=== PATIENT | female | born 1960 | race Caucasian/White ===

== ENCOUNTER 2017-04-02 18:47 | Emergency (ER) | payer OTHER ==
[~2017-04-02] VITALS: Ht 157.5 cm; Wt 46.5 kg
[~2017-04-02 18:47] MED LIST: ALEN70TA39 PO; AMPH1TAB83 PO; BECL80AE3 INH; BENZ100 PO; CLON1 PO; DICY20TA10 PO; FENO145T2 PO; LEVO.15 PO; MAXA10TA2 PO; NABU500T PO; OMEP20CA5 PO; OXYC1SOL5 PO; SUCR1TAB PO; VALA500T PO; VENL150T14 OR; VENTAER INH; ZOCO40TA PO
[2017-04-02 18:49] VITALS: BP 119/78; PULSE 65; RESP 18; TEMP 98.5; O2SAT 98
[2017-04-02] MEDS ORDERED: BETH10TA2 PO (19:13)
[2017-04-02] MEDS ORDERED: VENTAER INH (19:13)
[2017-04-02] MEDS ORDERED: DULO1CAP3 PO (19:13)
[2017-04-02] MEDS ORDERED: ALEN1TAB48 PO (19:13)
[2017-04-02] MEDS ORDERED: PERC10TA27 PO (19:13)
[2017-04-02] MEDS ORDERED: LEVO.075 PO (19:13)
[2017-04-02] MEDS ORDERED: COLE625 PO (19:13)
[2017-04-02] MEDS ORDERED: VITA100021 SL (19:13)
[2017-04-02] MEDS ORDERED: MECL-62 PO (19:13)
[2017-04-02] MEDS ORDERED: ADDE20XR PO (19:13)
[2017-04-02] MEDS ORDERED: CLON1TAB PO (19:13)
[2017-04-02] MEDS ORDERED: METH1TAB2 PO (19:13)
[2017-04-02] MEDS ORDERED: FENO145T2 PO (19:13)
[2017-04-02] MEDS ORDERED: IPRASOL INH (19:13)
[2017-04-02] MEDS ORDERED: LINA145C PO (19:13)
[2017-04-02] MEDS ORDERED: METH750T PO (19:13)
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
[2017-04-02] MEDS ORDERED: predniSONE 20 MG TAB PO ONE (19:45)
[2017-04-02] MEDS ORDERED: SODIUM CHLORIDE 0.9% FLUSH 10 ML FLUSH IVF PRN (19:45)
[2017-04-02] MEDS: RESP: ALBUTEROL 2.5 MG/IPRATROPIUM 0.5 MG NEB (SCH) INH (19:59)
--- NOTE | 2017-04-02 20:17 | RADRPT ---
EXAM DATE/TIME: 04/02/2017 19:48 [place] COMPARISON: No previous studies available for comparison. INDICATIONS : Cough. MEDICAL HISTORY : Carcinoma, breast. Hepatitis C. Asthma. SURGICAL HISTORY : Mastectomy, left. Breast reconstruction. ENCOUNTER: Initial ACUITY: 2 weeks PAIN SCORE: 0/10 LOCATION: Bilateral chest FINDINGS: Portable AP view of the chest demonstrates a normal-sized cardiac silhouette. No effusion, consolidat ion, or pneumothorax is visualized. The bones and soft tissues demonstrate no acute abnormality. Surg ical clips overlie the left axilla. CONCLUSION: No acute cardiopulmonary abnormality is identified. Gilbert Churchill MD on April 02, 2017 at 20:15 Board Certified Radiologist. This report was verified electronically.
[2017-04-02] MEDS ORDERED: PRED20 PO (20:21)
[2017-04-02] MEDS ORDERED: ZITHTAB PO (20:27)
[2017-04-02 20:37] VITALS: BP 148/81
== END 2017-04-02 20:57 | disposition home or self-care (01) ==
LOC: PHED 18:47
DX: J44.1 Chronic obstructive pulmonary disease with (acute) exacerbation (principal); Z87.891 Personal history of nicotine dependence
CPT/HCPCS: 71010; 94640; 94664; 99284; J7512

== ENCOUNTER 2017-12-15 10:19 | Observation (INO) ==
--- NOTE | 2017-12-15 10:37 | ED ---
HPI General Chief Complaint: Chest Pain Stated Complaint: Chest Pain/SDFR Time Seen by Provider: 12/15/17 10:32 Source: patient and EMS Mode of arrival: EMS Limitations: no limitations History of Present Illness HPI narrative: 57-year-old female patient with multiple medical issues, seen at [facility] for atypical chest pain yesterday, diagnosed with hypothyroidism, and has been told to follow-up as an outpatient, presents to the ER today brought in by EMS because she states that her heart rate is going up and down, and she is having a left-sided neck pain that radiates down her left arm and to her left chest. She does not know of any exacerbating or alleviating factors. She reports that the chest discomfort and neck pain is currently gone away. She was seen for the same thing yesterday as well. She has been coughing small amount of whitish phlegm. She denies any abdominal pains, vomiting, shortness of breath, or other symptoms. Complete Quality Measures for STEMI Alert Patients Related Data Home Medications Medication Instructions Recorded Confirmed ascorbic acid (vitamin C) [Vitamin 500 mg PO DAILY 12/15/17 12/15/17 C] bethanechol chloride 10 mg PO TID 12/15/17 12/15/17 cetirizine 10 mg PO DAILY 12/15/17 12/15/17 clonazepam 1 mg PO BID 12/15/17 12/15/17 cranberry 405 mg PO DAILY 12/15/17 12/15/17 dextroamphetamine-amphetamine 20 mg PO DAILY 12/15/17 12/15/17 [Adderall XR] docusate sodium 300 mg PO DAILY 12/15/17 12/15/17 famotidine 10 mg PO DAILY 12/15/17 12/15/17 fenofibrate nanocrystallized 145 mg PO DAILY 12/15/17 12/15/17 fluticasone furoate 1 inh INHALATION DAILY 12/15/17 12/15/17 folic acid 0.8 mg PO DAILY 12/15/17 12/15/17 ipratropium-albuterol 0.5 mg INHALATION Q4-6H 12/15/17 12/15/17 lactobacillus comb no.10 40,000 mmu cells PO DAILY 12/15/17 12/15/17 [Probiotic] levothyroxine [Synthroid] 100 mcg PO DAILY 12/15/17 12/15/17 meclizine 25 mg PO DAILY 12/15/17 12/15/17 methenamine hippurate 1 g PO DAILY 12/15/17 12/15/17 oxycodone 10 mg PO Q6H PRN 12/15/17 12/15/17 Allergies Allergy/AdvReac Type Severity Reaction Status Date / Time diatrizoate meglumine Allergy Severe SKIN Verified 12/15/17 10:26 REACTION gadobenic acid Allergy Severe SKIN Verified 12/15/17 10:26 REACTION gadodiamide Allergy Severe SKIN Verified 12/15/17 10:26 REACTION gadoteridol Allergy Severe SKIN Verified 12/15/17 10:26 REACTION iodixanol Allergy Severe SKIN Verified 12/15/17 10:26 REACTION iohexol Allergy Severe SKIN Verified 12/15/17 10:26 REACTION povidone-iodine Allergy Severe SKIN Verified 12/15/17 10:26 PROBLEMS Sulfa (Sulfonamide Allergy Severe Hives Verified 12/15/17 10:26 Antibiotics) shellfish derived AdvReac Severe NAUSEA AND Verified 12/15/17 10:26 VOMITING Review of Systems Except as stated in HPI: all other systems reviewed are negative PMFSH History History Provided By: Patient Medical History Medical History Anemia (Acute) Anxiety (Acute) Asthma (Acute) Bipolar 1 disorder (Acute) Breast cancer (Acute) COPD (chronic obstructive pulmonary disease) (Acute) Carpal tunnel syndrome (Acute) Chronic fatigue syndrome (Acute) Depression (Acute) Fibromyalgia (Acute) GERD (gastroesophageal reflux disease) (Acute) H/O: hysterectomy (Acute) High cholesterol (Acute) Hypertension (Acute) Hypothyroid (Acute) IBS (irritable bowel syndrome) (Acute) Migraine (Acute) Multiple sclerosis (Acute) Neuropathic pain (Acute) Osteoarthritis (Acute) Radiculopathy (Acute) Seizure (Acute) Traumatic brain injury (Acute) Surgical History Surgical History H/O left mastectomy (Acute) Social History Social History Substance History: No History of Abuse Smoking Status: Former smoker How Often Do You Have a Drink Containing Alcohol: Monthly or less Recent Travel in [facility] within the Last 8 Weeks: No Recent Out of Country Travel within the Last 8 Weeks: No Exam Narrative Exam Narrative: GENERAL: The left middle age female patient currently in mild distress. Awake and oriented 3. SKIN: Focused skin assessment warm/dry. HEAD: Atraumatic. Normocephalic. EYES: Pupils equal and round. No scleral icterus. No injection or drainage. ENT: No nasal bleeding or discharge. Mucous membranes pink and moist. NECK: Trachea midline. No JVD. No palpable nodules, masses or significant lymphadenopathy. Supple. CARDIOVASCULAR: Regular rate and rhythm. No murmur appreciated. Pulses are present and equal bilaterally. RESPIRATORY: No accessory muscle use. Clear to auscultation. Breath sounds equal bilaterally. GASTROINTESTINAL: Abdomen soft, non-tender, nondistended. Hepatic and splenic margins not palpable. MUSCULOSKELETAL: No obvious deformities. No clubbing. No cyanosis. No edema. NEUROLOGICAL: Awake and alert. No obvious cranial nerve deficits. Motor grossly within normal limits. Normal speech. PSYCHIATRIC: Appropriate mood and affect; insight and judgment normal. Course Hospital Course: EKG shows sinus bradycardia at a rate of 45 bpm. Lab work was fairly unremarkable. Her TSH is elevated. Patient is on Synthroid. At this point, I am concerned about her ongoing chest pain and my plan would be to admit her for further evaluation of chest pain. Patient is admitted to chest pain center for further evaluation. Initial Documented Vital Signs Pulse Rate 53 L 12/15/17 10:27 Respiratory Rate 16 12/15/17 10:27 Blood Pressure 141/101 H 12/15/17 10:27 Pulse Oximetry 100 12/15/17 10:27 Last Documented Vital Signs Pulse Rate 53 L 12/15/17 10:27 Respiratory Rate 16 12/15/17 10:27 Blood Pressure 141/101 H 12/15/17 10:27 Pulse Oximetry 100 12/15/17 10:40 Medical Decision Making Differential Diagnosis Differential Diagnosis: ACS versus dysrhythmias versus cervical radiculopathy versus musculoskeletal Lab Data Result diagrams: 12/15/17 10:40 12/15/17 10:40 Lab Results 12/15/17 12/15/17 12/15/17 Range/Units 10:40 10:40 10:40 WBC 5.5 (4.0-11.0) th/mm3 RBC 4.59 (4.00-5.30) mil/mm3 Hgb 13.8 (11.6-15.3) gm/dL Hct 41.4 (35.0-46.0) % MCV 90.3 (80.0-100.0) fL MCH 30.1 (27.0-34.0) pg MCHC 33.3 (32.0-36.0) % RDW 13.3 (11.6-17.2) % Plt Count 232 (150-450) th/mm3 MPV 8.1 (7.0-11.0) fL Neut % (Auto) 39.4 (16.0-70.0) % Lymph % (Auto) 50.8 H (9.0-44.0) % [place] % (Auto) 8.2 H (0.0-8.0) % Eos % (Auto) 1.2 (0.0-4.0) % Baso % (Auto) 0.4 (0.0-2.0) % Neut # (Auto) 2.2 (1.8-7.7) th/mm3 Lymph # (Auto) 2.8 (1.0-4.8) th/mm3 [place] # (Auto) 0.5 (0.0-0.9) th/mm3 Eos # (Auto) 0.1 (0.0-0.4) th/mm3 Baso # (Auto) 0.0 (0.0-0.2) th/mm3 WBC Differential . Differential Comment Auto diff final PT 10.5 (9.8-11.6) sec INR 1.0 Ratio APTT 25.0 (24.3-30.1) sec Sodium (136-145) meq/L Potassium (3.5-5.1) meq/L Chloride (98-107) meq/L Carbon Dioxide (21.0-32.0) meq/L Anion Gap (5-15) meq/L BUN (7-18) mg/dL Creatinine (0.50-1.00) mg/dL Estimated GFR (>89) mL/min Random Glucose (74-106) mg/dL Calcium (8.5-10.1) mg/dL Total Bilirubin (0.2-1.0) mg/dL AST (15-37) U/L ALT (10-53) U/L Alkaline Phosphatase (45-117) U/L Troponin I Total Protein (6.4-8.2) g/dL Albumin (3.4-5.0) g/dL TSH Cancelled 12/15/17 12/15/17 Range/Units 10:40 10:40 WBC (4.0-11.0) th/mm3 RBC (4.00-5.30) mil/mm3 Hgb (11.6-15.3) gm/dL Hct (35.0-46.0) % MCV (80.0-100.0) fL MCH (27.0-34.0) pg MCHC (32.0-36.0) % RDW (11.6-17.2) % Plt Count (150-450) th/mm3 MPV (7.0-11.0) fL Neut % (Auto) (16.0-70.0) % Lymph % (Auto) (9.0-44.0) % [place] % (Auto) (0.0-8.0) % Eos % (Auto) (0.0-4.0) % Baso % (Auto) (0.0-2.0) % Neut # (Auto) (1.8-7.7) th/mm3 Lymph # (Auto) (1.0-4.8) th/mm3 [place] # (Auto) (0.0-0.9) th/mm3 Eos # (Auto) (0.0-0.4) th/mm3 Baso # (Auto) (0.0-0.2) th/mm3 WBC Differential Differential Comment PT (9.8-11.6) sec INR Ratio APTT (24.3-30.1) sec Sodium 140 (136-145) meq/L Potassium 3.9 (3.5-5.1) meq/L Chloride 108 H (98-107) meq/L Carbon Dioxide 26.5 (21.0-32.0) meq/L Anion Gap 6 (5-15) meq/L BUN 7 (7-18) mg/dL Creatinine 0.97 (0.50-1.00) mg/dL Estimated GFR 59 L (>89) mL/min Random Glucose 81 (74-106) mg/dL Calcium 8.5 (8.5-10.1) mg/dL Total Bilirubin 0.5 (0.2-1.0) mg/dL AST 17 (15-37) U/L ALT 16 (10-53) U/L Alkaline Phosphatase 58 (45-117) U/L Troponin I Cancelled Less than 0.02 L Total Protein 6.8 (6.4-8.2) g/dL Albumin 3.7 (3.4-5.0) g/dL TSH 18.500 H Imaging Data Radiologist's impression: Chest X-Ray 12/15/17 10:33 CONCLUSION: No acute cardiopulmonary disease. Discharge Plan Discharge Disposition Patient Disposition: 30 Still Patient Discharge Condition Condition: Stable Discharge Details Anticipated Discharge Date: 12/15/17 Diagnosis: Atypical chest pain, Bradycardia Physicians Team ED Provider: Sebastian Pleitez Primary Care Provider: Aleta Delgado Rxs /Orders / Referrals /Forms Prescriptions: No Action ipratropium-albuterol 0.5 mg-3 mg(2.5 mg base)/3 mL Solution For Nebulization 0.5 mg Inhalation Q4-6H RF: 0 famotidine 10 mg Tablet 10 mg PO DAILY RF: 0 cetirizine 10 mg Tablet 10 mg PO DAILY RF: 0 bethanechol chloride 10 mg Tablet 10 mg PO TID RF: 0 clonazepam 1 mg Tablet 1 mg PO BID RF: 0 levothyroxine [Synthroid] 100 mcg Tablet 100 mcg PO DAILY RF: 0 methenamine hippurate 1 gram Tablet 1 g PO DAILY RF: 0 ascorbic acid (vitamin C) [Vitamin C] 500 mg Tablet 500 mg PO DAILY RF: 0 dextroamphetamine-amphetamine [Adderall XR] 20 mg Capsule,Extended Release 24hr 20 mg PO DAILY RF: 0 meclizine 25 mg Tablet 25 mg PO DAILY RF: 0 cranberry 405 mg Capsule 405 mg PO DAILY RF: 0 docusate sodium 100 mg Capsule 300 mg PO DAILY RF: 0 folic acid 800 mcg Tablet 0.8 mg PO DAILY RF: 0 fenofibrate nanocrystallized 145 mg Tablet 145 mg PO DAILY RF: 0 oxycodone 10 mg Tablet 10 mg PO Q6H PRN (Reason: Pain) RF: 0 lactobacillus comb no.10 [Probiotic] 20 billion cell Capsule 40,000 mmu cells PO DAILY RF: 0 fluticasone furoate 100 mcg/actuation Blister With Device 1 inh INHALATION DAILY RF: 0 Discharge Instructions Patient Printed Instructions: Chest Pain (ED) Status ED Status: With Doctor
[2017-12-15 11:06] LABS: Baso % (Auto) 0.4 % (0.0-2.0); Eos # (Auto) 0.1 th/mm3 (0.0-0.4); Eos % (Auto) 1.2 % (0.0-4.0); Hematocrit 41.4 % (35.0-46.0); Hemoglobin 13.8 gm/dL (11.6-15.3); Lymph # (Auto) 2.8 th/mm3 (1.0-4.8); Lymph % (Auto) 50.8 % (9.0-44.0); Mean Corpuscular HGB Conc 33.3 % (32.0-36.0); Mean Corpuscular Hemoglobin 30.1 pg (27.0-34.0); Mean Corpuscular Volume 90.3 fL (80.0-100.0); Mean Platelet Volume 8.1 fL (7.0-11.0); Mono # (Auto) 0.5 th/mm3 (0.0-0.9); Mono % (Auto) 8.2 % (0.0-8.0); Neut # (Auto) 2.2 th/mm3 (1.8-7.7); Neut % (Auto) 39.4 % (16.0-70.0); Platelet Count 232 th/mm3 (150-450); Red Blood Count 4.59 mil/mm3 (4.00-5.30); Red Cell Distribution Width 13.3 % (11.6-17.2); White Blood Count 5.5 th/mm3 (4.0-11.0)
[2017-12-15 11:21] LABS: Prothrombin Time 10.5 sec (9.8-11.6)
[2017-12-15 11:32] LABS: Albumin 3.7 g/dL (3.4-5.0); Anion Gap 6 meq/L (5-15); Aspartate Aminotransferase 17 U/L (15-37); Blood Urea Nitrogen 7 mg/dL (7-18); Calcium 8.5 mg/dL (8.5-10.1); Carbon Dioxide 26.5 meq/L (21.0-32.0); Chloride 108 meq/L (98-107); Glomerular Filtration Rate 59 mL/min (>89); Glucose,Random 81 mg/dL (74-106); Potassium 3.9 meq/L (3.5-5.1); Sodium 140 meq/L (136-145)
--- NOTE | 2017-12-15 11:36 | XR ---
EXAM DATE: 12/15/2017 11:23 AM EDT AGE/SEX: 57 years / Female INDICATIONS: Syncope, chest pain. CLINICAL DATA: This is the patient's initial encounter. Patient reports that signs and symptoms have been present for 2 days and indicates a pain score of 1/10. MEDICAL/SURGICAL HISTORY: Hypertension. Left breast cancer status post mastectomy. Breast augme ntation. COMPARISON: [facility], CT ABDOMEN AND PELVIS W/O CONTRAST, 10/20/2016. . FINDINGS: A single AP view of the chest demonstrates the lungs to be symmetrically aerated without evidence of mass, infiltrate or effusion. The cardiomediastinal contours are unremarkable. Osseous structures a re intact. There is increased soft tissue density over the lung bases secondary to breast implants. Multiple surgical clips are noted in the left axilla. CONCLUSION: No acute cardiopulmonary disease. Electronically signed by: Manolo Osman MD 12/15/2017 11:35 AM EDT
[2017-12-15 11:43] LABS: Alanine Aminotransferase 16 U/L (10-53); Alkaline Phosphatase 58 U/L (45-117); Total Protein 6.8 g/dL (6.4-8.2)
--- NOTE | 2017-12-15 14:10 | P.HPCA ---
History of Present Illness Primary Care Physician: Aleta Delgado Chief Complaint: Chest pain History of Present Illness: This is a 57-year-old female that presents to ED via EMS with a complaint of chest discomfort. States that she has had 4 days of intermittent discomfort in the left chest. She states sometimes it radiates from the left side of her neck into the left upper chest and down her left arm and O times it radiates from the chest outward. Found nothing in particular to bring on the discomfort. When it occurs last for 5-10 minutes. At times she is short of breath, nauseous and diaphoretic. She was seen at [facility] yesterday and had labs and discharged. States the stress test was obtained. States her last stress test was about 10 or 11 years ago was okay. She saw her primary care physician 2 days ago for similar issues as she also found her blood pressure to be high and her PCP placed her on lisinopril 10 mg daily. Patient states she also has hypothyroidism and is difficult to manage. States her dosage is changed frequently and was actually reduced from 125 mcg to 100 mcg milligrams daily about 2 months ago. Your TSH at the CD today was 18.500. Patient longer smokes. States she quit about 30 years ago. When she did smoke she may have smoked maybe 1/2 pack/s per week for about 6 years. Denies alcohol or illicit drug use. States that her father age 67 of a myocardial infarction. - Diagnosis (1) Chest pain (2) Hypothyroidism Review of Systems General: Patient denies fevers, chills, and recent travel. HEENT: Patient denies headache, sore throat, difficulty swallowing. Cardiovascular: Has the chest discomfort as mentioned above. Denies sensation of heart beating rapidly or irregularly. No syncope. Occasional diaphoresis. Respiratory: Occasional shortness of breath. Denies inspirational chest discomfort. Denies coughing wheezing or hemoptysis. GI: Occasional nausea. Patient denies vomiting, diarrhea, abdominal pain, bloody stools. Musculoskeletal: Patient denies joint pain or edema. Denies calf pain or edema. Neurovascular: Patient denies numbness, tingling, weakness in extremities. Denies headache. Endocrine: Denies polyuria and polydipsia. Hematologic: Denies easy bruising. Skin: Denies rash or itching. PMFSH - History History Provided By: Patient - Medical History Medical History: Medical History (Last Updated 12/15/17 @ 10:38 by Annabel Heard) Anemia Anxiety Asthma Bipolar 1 disorder Breast cancer COPD (chronic obstructive pulmonary disease) Carpal tunnel syndrome Chronic fatigue syndrome Depression Fibromyalgia GERD (gastroesophageal reflux disease) H/O: hysterectomy High cholesterol Hypertension Hypothyroid IBS (irritable bowel syndrome) Migraine Multiple sclerosis Neuropathic pain Osteoarthritis Radiculopathy Seizure Traumatic brain injury - Surgical History Surgical History: Surgical History (Last Reviewed 12/15/17 @ 10:38 by Sebastian Pleitez MD) H/O left mastectomy - Tobacco History Smoking Status: Former smoker - Alcohol History How Often Do You Have a Drink Containing Alcohol: Monthly or less - Substance Use History Substance History: No History of Abuse - Travel History Recent Travel in the [place] Within the Last 8 Weeks: No Recent Travel Out of the Country Within the Last 8 Weeks: No - Immunization History Tetanus Immunization: <5 Years Hx Influenza Vaccine This Season: Yes Medications and Allergies Active Medications: Active Medications Aspirin (Aspirin) 325 mg PO DAILY JULIANA Levothyroxine Sodium (Synthroid) 100 mcg PO DAILY JULIANA Sodium Chloride (Ns Flush) 2 ml IV.FLUSH UNSCH PRN PRN Reason: FLUSH AFTER USING IV ACCESS Sodium Chloride (Ns Flush) 2 ml IV.FLUSH PRN PRN PRN Reason: FLUSH AFTER USING IV ACCESS Sodium Chloride (Ns Flush) 2 ml IV.FLUSH BID JULIANA Allergies Allergy/AdvReac Type Severity Reaction Status Date / Time diatrizoate meglumine Allergy Severe SKIN Verified 12/15/17 10:26 REACTION gadobenic acid Allergy Severe SKIN Verified 12/15/17 10:26 REACTION gadodiamide Allergy Severe SKIN Verified 12/15/17 10:26 REACTION gadoteridol Allergy Severe SKIN Verified 12/15/17 10:26 REACTION iodixanol Allergy Severe SKIN Verified 12/15/17 10:26 REACTION iohexol Allergy Severe SKIN Verified 12/15/17 10:26 REACTION povidone-iodine Allergy Severe SKIN Verified 12/15/17 10:26 PROBLEMS Sulfa (Sulfonamide Allergy Severe Hives Verified 12/15/17 10:26 Antibiotics) shellfish derived AdvReac Severe NAUSEA AND Verified 12/15/17 10:26 VOMITING Home Medications Medication Instructions Recorded Confirmed Type ascorbic acid (vitamin C) [Vitamin 500 mg PO DAILY 12/15/17 12/15/17 History C] bethanechol chloride 10 mg PO TID 12/15/17 12/15/17 History cetirizine 10 mg PO DAILY 12/15/17 12/15/17 History clonazepam 1 mg PO BID 12/15/17 12/15/17 History cranberry 405 mg PO DAILY 12/15/17 12/15/17 History dextroamphetamine-amphetamine 20 mg PO DAILY 12/15/17 12/15/17 History [Adderall XR] docusate sodium 300 mg PO DAILY 12/15/17 12/15/17 History famotidine 10 mg PO DAILY 12/15/17 12/15/17 History fenofibrate nanocrystallized 145 mg PO DAILY 12/15/17 12/15/17 History fluticasone furoate 1 inh INHALATION DAILY 12/15/17 12/15/17 History folic acid 0.8 mg PO DAILY 12/15/17 12/15/17 History ipratropium-albuterol 0.5 mg INHALATION Q4-6H 12/15/17 12/15/17 History lactobacillus comb no.10 40,000 mmu cells PO DAILY 12/15/17 12/15/17 History [Probiotic] levothyroxine [Synthroid] 100 mcg PO DAILY 12/15/17 12/15/17 History meclizine 25 mg PO DAILY 12/15/17 12/15/17 History methenamine hippurate 1 g PO DAILY 12/15/17 12/15/17 History oxycodone 10 mg PO Q6H PRN 12/15/17 12/15/17 History Exam Vital signs: Vital Signs 12/15/17 10:27 12/15/17 10:40 12/15/17 12:59 Pulse Rate 53 L 60 Respiratory Rate 16 19 Blood Pressure 141/101 H 133/75 Pulse Oximetry 100 100 100 Intake & Output 12/14/17 12/15/17 12/15/17 18:59 06:59 18:59 Weight 45.132 kg Narrative: GENERAL: This is a well-nourished, well-developed patient, in no apparent distress. Patient speaks in clear complete sentences. Patient is pleasant. HEENT: Head is atraumatic and normocephalic. Neck is supple without lymphadenopathy and trachea is midline. No JVD or carotid bruits. CARDIOVASCULAR: Regular rate and rhythm without murmurs, gallops, or rubs. RESPIRATORY: Clear to auscultation. Breath sounds equal bilaterally. No wheezes , rales, or rhonchi. Left upper chest wall is tender reproducing the discomfort she has been having. No use of accessory muscles. GASTROINTESTINAL: Abdomen is nontender, nondistended. Abdomen soft. No obvious pulsatile mass or bruit. No CVA tenderness. Strong femoral pulses bilaterally. Normal bowel sounds in all quadrants. MUSCULOSKELETAL: Patient is moving upper and lower extremities freely. No calf tenderness or edema, no Homans sign. Strong pulses in upper and lower extremities. NEUROLOGICAL: Patient is alert and oriented. Cranial nerves 2-12 are grossly intact. No focal deficits and speech is clear. SKIN: No rash and turgor is normal. Results 12/15/17 10:40 12/15/17 10:40 Cardiac Enzymes 12/15/17 12/15/17 Range/Units 10:40 10:40 AST 17 (15-37) U/L Troponin I Cancelled Less than 0.02 L Coagulation 12/15/17 Range/Units 10:40 PT 10.5 (9.8-11.6) sec APTT 25.0 (24.3-30.1) sec CBC 12/15/17 Range/Units 10:40 WBC 5.5 (4.0-11.0) th/mm3 RBC 4.59 (4.00-5.30) mil/mm3 Hgb 13.8 (11.6-15.3) gm/dL Hct 41.4 (35.0-46.0) % Plt Count 232 (150-450) th/mm3 Neut # (Auto) 2.2 (1.8-7.7) th/mm3 Lymph # (Auto) 2.8 (1.0-4.8) th/mm3 Burnet # (Auto) 0.5 (0.0-0.9) th/mm3 Eos # (Auto) 0.1 (0.0-0.4) th/mm3 Baso # (Auto) 0.0 (0.0-0.2) th/mm3 Comprehensive Metabolic Panel 12/15/17 Range/Units 10:40 Sodium 140 (136-145) meq/L Potassium 3.9 (3.5-5.1) meq/L Chloride 108 H (98-107) meq/L Carbon Dioxide 26.5 (21.0-32.0) meq/L BUN 7 (7-18) mg/dL Creatinine 0.97 (0.50-1.00) mg/dL Calcium 8.5 (8.5-10.1) mg/dL AST 17 (15-37) U/L ALT 16 (10-53) U/L Alkaline Phosphatase 58 (45-117) U/L Total Protein 6.8 (6.4-8.2) g/dL Albumin 3.7 (3.4-5.0) g/dL Intake and Output 12/14/17 12/15/17 12/15/17 22:59 06:59 14:59 Other: Weight 45.132 kg Patient Weight 12/16/17 06:59 Weight 45.132 kg EKG interpretations - EKG EKG shows: bradycardia (Initial EKG sinus bradycardia rate 45 with anterolateral nonspecific T-wave changes.) Caprini VTE Risk Assessment Caprini VTE Risk Assessment: No/Low Risk (score <= 1) Caprini Risk Assessment Model: Point Value = 1 Point Value = 2 Point Value = 3 Point Value = 5 Age 41-60 Minor surgery BMI > 25 kg/m2 Swollen legs Varicose veins or History of unexplained or recurrent spontaneous Oral contraceptives or hormone replacement Sepsis (< 1 month) Serious lung disease, including pneumonia (< 1 month) Abnormal pulmonary function Acute myocardial infarction Congestive heart failure (< 1 month) History of inflammatory bowel disease Medical patient at bed rest Age 61-74 Arthroscopic surgery Major open surgery (> 45 min) Laparoscopic surgery (> 45 min) Malignancy Confined to bed (> 72 hours) Immobilizing plaster cast Central venous access Age >= 75 History of VTE Family history of VTE Factor V Leiden Prothrombin [id number] Lupus anticoagulant Anticardiolipin antibodies Elevated serum homocysteine Heparin-induced thrombocytopenia Other congenital or acquired thrombophilia Stroke (< 1 month) Elective arthroplasty Hip, pelvis, or leg fracture Acute spinal cord injury (< 1 month) Prophylaxis Regimen: Total Risk Factor Score Risk Level Prophylaxis Regimen 0-1 Low Early ambulation 2 Moderate Order ONE of the following: *Sequential Compression Device (SCD) *Heparin 5000 units SQ BID 3-4 Higher Order ONE of the following medications: *Heparin 5000 units SQ TID *Enoxaparin/Lovenox 40 mg SQ daily (WT < 150 kg, CrCl > 30 mL/min) *Enoxaparin/Lovenox 30 mg SQ daily (WT < 150 kg, CrCl > 10-29 mL/min) *Enoxaparin/Lovenox 30 mg SQ BID (WT < 150 kg, CrCl > 30 mL/min) AND/OR *Sequential Compression Device (SCD) 5 or more Highest Order ONE of the following medications: *Heparin 5000 units SQ TID (Preferred with Epidurals) *Enoxaparin/Lovenox 40 mg SQ daily (WT < 150 kg, CrCl > 30 mL/min) *Enoxaparin/Lovenox 30 mg SQ daily (WT < 150 kg, CrCl > 10-29 mL/min) *Enoxaparin/Lovenox 30 mg SQ BID (WT < 150 kg, CrCl > 30 mL/min) AND *Sequential Compression Device (SCD) Assessment and Plan - Assessment (1) Chest pain Code(s): R07.9 - Chest pain, unspecified Status: Acute (2) Hypothyroidism Code(s): E03.9 - Hypothyroidism, unspecified Status: Acute - Plan * Chest pain: Patient had one set of cardiac enzymes but she has had them performed this evening at another facility. She essentially the time has ruled out. She will be seen by Dr. Bojorquez. She will undergo a Lexiscan and likely be discharged home if her stress test is nonischemic with instructions to follow -up with PCP. Return to ED for interval issues. * Hypothyroidism: Patient to follow-up with her physician for thyroid management. A copy of her lab will be given. Patient is stable at this time. She is agreeable to this plan.
[2017-12-15] MEDS ORDERED: Levothyroxine 100 MCG Tablet PO SCH (14:30)
[2017-12-15] MEDS ORDERED: Regadenoson Inj 0.4 MG/5 ML Syringe IV.PUSH ONE (15:56)
--- NOTE | 2017-12-15 17:33 | NM ---
EXAM DATE: 12/15/2017 5:23 PM EDT AGE/SEX: 57 years / Female INDICATIONS:Angina. . Chest pain. CLINICAL DATA: This is the patient's initial encounter. Patient reports that signs and symptoms have been present for 1 day and indicates a pain score of 2/10. MEDICAL/SURGICAL HISTORY: Carcinoma, breast. Hypertension. Chronic obstructive pulmonary dise ase. Mastectomy, left. Hysterectomy. COMPARISON: No prior exams available for comparison. DOSE: 8.5 mCi Tc 99m Myoview at rest 27.2 mCi [id number] at stress 0.4 mg Lexiscan STRESS SYMPTOMS: Heart racing and abdomen pain. EJECTION FRACTION: 58 % TECHNIQUE: The patient underwent pharmacologic stress with infusion of prescribed dose. Continuous ECG tracing was monitored during stress. Gated SPECT imaging was performed after stress and conventi onal SPECT imaging was performed at rest. The examination was performed on a SPECT/CT scanner, both attenuation and non-corrected datasets were reviewed. FINDINGS: Distribution: The maximum perfused segment at stress is in the anterior wall. Perfusion Study: The pattern of perfusion at stress is within normal limits. Gated Study: There are intact wall motion and wall thickening without hypokinetic or dyskinetic segm ents. The ejection fraction is calculated at 58%. RISK CATEGORY: Low (<1% Annual Motality Rate) CONCLUSION: 1. No fixed or reversible wall defect to suggest ischemia or infarction. 2. Normal wall motion and calculated ejection fraction. Electronically signed by: Manolo Osman MD 12/15/2017 5:32 PM EDT
[2017-12-16] MEDS ORDERED: Aspirin 325 MG Tablet PO SCH (09:00)
--- NOTE | 2017-12-16 13:47 | TR ---
Date Performed: 12/15/2017 Time Performed: 16:15:37 DOCTOR: Aramis Bojorquez DRUG LIST: CLINICAL HISTORY: REASON FOR TEST: REASON FOR ENDING: OBSERVATION: CONCLUSION: COMMENTS: Lexiscan stress test was performed under standard four minute protocol. Radionuclide was injected one minute prior to ending the test. No electrocardiographic abormalities were present t o suggest ischemia. Nuclear imaging and interpretation are pending.
--- NOTE | 2017-12-16 14:39 | ECG ---
Date Performed: 12/15/2017 Time Performed: 10:39:21 PTAGE: 57 years EKG: SINUS BRADYCARDIA NONSPECIFIC T-WAVE ABNORMALITY BORDERLINE ECG Since the PREVIOUS TRACING , no significant change noted PREVIOUS TRACIN08/24/05 DOCTOR: Nathan Ortega Interpretating Date/Time 12/16/2017 14:38:58
== END 2017-12-15 19:40 | disposition home or self-care (01) ==
LOC: NEDA 10:19 → NEPE 10:19 → NEPGCP 10:19 → NEDA 13:54 → NEPGCP 13:56
DX: Z87.891 Personal history of nicotine dependence; R11.0 Nausea; G35 Multiple sclerosis; M19.90 Unspecified osteoarthritis, unspecified site; F41.9 Anxiety disorder, unspecified; R07.89 Other chest pain; R61 Generalized hyperhidrosis; F31.9 Bipolar disorder, unspecified; J44.9 Chronic obstructive pulmonary disease, unspecified; Z82.49 Family history of ischemic heart disease and other diseases of the circulatory system; Z79.82 Long term (current) use of aspirin; K21.9 Gastro-esophageal reflux disease without esophagitis; R00.1 Bradycardia, unspecified; Z85.3 Personal history of malignant neoplasm of breast; E78.00 Pure hypercholesterolemia, unspecified; R06.02 Shortness of breath; M79.7 Fibromyalgia; K58.9 Irritable bowel syndrome, unspecified; I10 Essential (primary) hypertension; Z79.899 Other long term (current) drug therapy; E03.9 Hypothyroidism, unspecified

== ENCOUNTER 2018-02-19 08:50 | Observation (INO) ==
[2018-02-19 09:38] LABS: Baso % (Auto) 0.7 % (0.0-2.0); Eos # (Auto) 0.1 th/mm3 (0.0-0.4); Eos % (Auto) 1.6 % (0.0-4.0); Hematocrit 37.5 % (35.0-46.0); Hemoglobin 12.7 gm/dL (11.6-15.3); Lymph # (Auto) 1.3 th/mm3 (1.0-4.8); Lymph % (Auto) 21.3 % (9.0-44.0); Mean Corpuscular HGB Conc 33.8 % (32.0-36.0); Mean Corpuscular Hemoglobin 30.6 pg (27.0-34.0); Mean Corpuscular Volume 90.6 fL (80.0-100.0); Mean Platelet Volume 7.5 fL (7.0-11.0); Mono # (Auto) 0.3 th/mm3 (0.0-0.9); Mono % (Auto) 5.4 % (0.0-8.0); Neut # (Auto) 4.6 th/mm3 (1.8-7.7); Platelet Count 291 th/mm3 (150-450); Red Blood Count 4.14 mil/mm3 (4.00-5.30); Red Cell Distribution Width 12.5 % (11.6-17.2); White Blood Count 6.3 th/mm3 (4.0-11.0)
[2018-02-19 09:52] LABS: Calcium 8.4 mg/dL (8.5-10.1)
[2018-02-19 09:53] LABS: Albumin 3.5 g/dL (3.4-5.0); Carbon Dioxide 28.6 meq/L (21.0-32.0); Glucose,Random 88 mg/dL (74-106)
[2018-02-19 09:56] LABS: Alanine Aminotransferase 12 U/L (10-53); Glomerular Filtration Rate 67 mL/min (>89)
[2018-02-19 09:58] LABS: Total Protein 7.2 g/dL (6.4-8.2)
[2018-02-19 09:59] LABS: Alkaline Phosphatase 67 U/L (45-117)
[2018-02-19 10:00] LABS: Anion Gap 9 meq/L (5-15); Chloride 103 meq/L (98-107); Sodium 141 meq/L (136-145)
--- NOTE | 2018-02-19 10:03 | XR ---
EXAM DATE: 02/19/2018 9:22 AM EDT AGE/SEX: 57 years / Female INDICATIONS: Cough and shortness of Breath CLINICAL DATA: This is the patient's initial encounter. Patient reports that signs and symptoms have been present for 1 day and indicates a pain score of 0/10. MEDICAL/SURGICAL HISTORY: . Chronic obstructive pulmonary disease. Hypertension. Gastroesophage al reflux disease. . Hysterectomy. COMPARISON: [facility], CHEST 1V SINGLE AP, 12/15/2017. . FINDINGS: Surgical clips left axilla. Lungs are clear. The heart and pulmonary vascularity are normal. The portion of the bony skeleton visualized is unremarkable. CONCLUSION: Negative chest for acute disease. Electronically signed by: Patrick Mcnamara MD 02/19/2018 10:02 AM EDT
[2018-02-19 10:07] LABS: Aspartate Aminotransferase 14 U/L (15-37); Blood Urea Nitrogen 6 mg/dL (7-18)
[2018-02-19 10:09] LABS: Creatine Kinase 50 U/L (26-192)
--- NOTE | 2018-02-19 12:09 | ED ---
HPI General Chief complaint: Respiratory Symptoms Stated complaint: Flu like Sx / Recent Surgery Time Seen by Provider: 02/19/18 09:03 History of Present Illness HPI narrative: This is a 57-year-old female with a history of reported low ejection fraction, coronary artery disease, who presents today with complaints of cough congestion and chest pain. Patient states that she has had cough and congestion symptoms. She also reports chest pain. She states the pain is on her left side and runs down her left arm and she reports it as a 7-8 out of 10 on the pain scale. The patient is concerned because she had a cardiac catheterization in December and was told that she had an ejection fraction of 20% . She states that they did not stent the vessel. She had a 15% blocked LAD at that time. There is no diaphoresis or nausea. There is shortness of breath. Related Data Home Medications Medication Instructions Recorded Confirmed cranberry 405 mg PO DAILY 12/15/17 02/19/18 albuterol sulfate [Ventolin HFA] 2 puff INHALATION Q6-8H 12/22/17 02/19/18 cyanocobalamin (vitamin B-12) 1,000 mcg IM Q2W 12/22/17 02/19/18 [Vitamin B-12] carvedilol 6.25 mg PO BID 01/04/18 02/19/18 cetirizine 10 mg PO DAILY 01/04/18 02/19/18 clonazepam 1 mg PO BID 01/04/18 02/19/18 colesevelam [WelChol] 0.5 dose PO DAILY 01/04/18 02/19/18 fenofibrate nanocrystallized 145 mg PO DAILY 01/04/18 02/19/18 ipratropium-albuterol 3 ml INHALATION Q8H 01/04/18 02/19/18 isosorbide mononitrate 10 mg PO TID 01/04/18 02/19/18 levothyroxine [Synthroid] 125 mcg PO DAILY 01/04/18 02/19/18 lisinopril 10 mg PO DAILY 01/04/18 02/19/18 meclizine 25 mg PO DAILY PRN 01/04/18 02/19/18 methenamine hippurate 1 g PO DAILY 01/04/18 02/19/18 omeprazole 40 mg PO DAILY 01/04/18 02/19/18 oxycodone-acetaminophen 1 tab PO Q6H PRN 01/04/18 02/19/18 sodium chloride [Nasal 1 spray INTRANASAL Q4H PRN MDD 90 01/04/18 02/19/18 Moisturizing] sucralfate [Carafate] 1 g PO QID 01/04/18 02/19/18 dexlansoprazole [Dexilant] 60 mg PO DAILY 02/19/18 02/19/18 fluticasone furoate [Arnuity 1 inh INHALATION DAILY 02/19/18 02/19/18 Ellipta] folic acid 0.8 mg PO DAILY 02/19/18 02/19/18 nitroglycerin 0.4 mg SUBLINGUAL Q5-15M PRN 02/19/18 02/19/18 Allergies Allergy/AdvReac Type Severity Reaction Status Date / Time diatrizoate meglumine Allergy Severe SKIN Verified 02/19/18 08:59 REACTION gadobenic acid Allergy Severe SKIN Verified 02/19/18 08:59 REACTION gadodiamide Allergy Severe SKIN Verified 02/19/18 08:59 REACTION gadoteridol Allergy Severe SKIN Verified 02/19/18 08:59 REACTION iodixanol Allergy Severe SKIN Verified 02/19/18 08:59 REACTION iohexol Allergy Severe SKIN Verified 02/19/18 08:59 REACTION povidone-iodine Allergy Severe SKIN Verified 02/19/18 08:59 PROBLEMS Sulfa (Sulfonamide Allergy Severe Hives Verified 02/19/18 08:59 Antibiotics) shellfish derived AdvReac Severe NAUSEA AND Verified 02/19/18 08:59 VOMITING Review of Systems Constitutional Denies chills and Denies fever(s) Eyes Reports system reviewed and no additional complaints, except as [facility] E[facility] Reports system reviewed and no additional complaints, except as [facility] Cardiovascular Reports chest pain, Denies palpitations and Reports dyspnea Respiratory Reports chest congestion, Reports cough and Reports dyspnea Gastrointestinal Denies abdominal pain, Denies nausea and Denies vomiting Genitourinary Reports system reviewed and no additional complaints, except as [facility] Musculoskeletal Reports system reviewed and no additional complaints, except as [facility] Neurologic Reports system reviewed and no additional complaints, except as [facility] Social History Social History Substance History: No History of Abuse Second Hand Smoke Exposure: No Smoking Status: Former smoker How Often Do You Have a Drink Containing Alcohol: Never Recent Travel in [place] within the Last 8 Weeks: No Recent Out of Country Travel within the Last 8 Weeks: No Immunization History Tetanus Immunization: Unsure Hx Influenza Vaccine This Season: No Exam Narrative Exam Narrative: GENERAL: Well-developed well-nourished female in no acute respiratory distress. SKIN: Focused skin assessment warm/dry. HEAD: Atraumatic. Normocephalic. EYES: No scleral icterus. No injection or drainage. ENT: No nasal bleeding or discharge. Mucous membranes pink and moist. NECK: Trachea midline. Supple. CARDIOVASCULAR: Sinus bradycardia with a rate in the high 50s. No murmur appreciated. RESPIRATORY: No accessory muscle use. Clear to auscultation. Breath sounds equal bilaterally. GASTROINTESTINAL: Abdomen soft, non-tender, nondistended. Hepatic and splenic margins not palpable. MUSCULOSKELETAL: No obvious deformities. No clubbing. No cyanosis. No edema. NEUROLOGICAL: Awake and alert. No obvious cranial nerve deficits. Motor grossly within normal limits. Normal speech. Course Initial Documented Vital Signs Temperature 98.6 F 02/19/18 08:52 Pulse Rate 83 02/19/18 08:52 Respiratory Rate 20 02/19/18 08:52 Blood Pressure 117/84 02/19/18 08:52 Pulse Oximetry 97 02/19/18 08:52 Last Documented Vital Signs Temperature 98.6 F 02/19/18 08:52 Pulse Rate 65 02/19/18 10:47 Respiratory Rate 18 02/19/18 10:47 Blood Pressure 148/95 H 02/19/18 10:47 Pulse Oximetry 100 02/19/18 10:47 Medical Decision Making [facility] Narrative Medical decision making narrative: 57-year-old female with a history of low ejection fraction, coronary disease, presents here today with complaints of cough congestion and chest pain. Patient's EKG shows sinus bradycardia with inverted T waves in the anterior lateral leads. She also has flat ST segments in the inferior leads. There is no acute ST elevation or depression. Chest x- ray shows no evidence of acute infiltrate. Cardiac enzymes are within normal limits. Given the patient's history and her low EF, I do not feel she was appropriate for the chest pain center. She will be admitted under observation to the hospitalist service. Medical Screen Exam Complete: Yes Emergency Medical Condition: Yes Differential Diagnosis Differential Diagnosis: Bronchitis versus pneumonia versus ACS Lab Data Result diagrams: 02/19/18 09:30 02/19/18 09:30 Lab Results 02/19/18 02/19/18 Range/Units 09:30 09:30 CBC w Diff Auto diff final WBC 6.3 (4.0-11.0) th/mm3 RBC 4.14 (4.00-5.30) mil/mm3 Hgb 12.7 (11.6-15.3) gm/dL Hct 37.5 (35.0-46.0) % MCV 90.6 (80.0-100.0) fL MCH 30.6 (27.0-34.0) pg MCHC 33.8 (32.0-36.0) % RDW 12.5 (11.6-17.2) % Plt Count 291 (150-450) th/mm3 MPV 7.5 (7.0-11.0) fL Neut % (Auto) 71.0 H (16.0-70.0) % Lymph % (Auto) 21.3 (9.0-44.0) % Lynn % (Auto) 5.4 (0.0-8.0) % Eos % (Auto) 1.6 (0.0-4.0) % Baso % (Auto) 0.7 (0.0-2.0) % Neut # (Auto) 4.6 (1.8-7.7) th/mm3 Lymph # (Auto) 1.3 (1.0-4.8) th/mm3 Lynn # (Auto) 0.3 (0.0-0.9) th/mm3 Eos # (Auto) 0.1 (0.0-0.4) th/mm3 Baso # (Auto) 0.0 (0.0-0.2) th/mm3 WBC Differential . Differential Comment . Sodium 141 (136-145) meq/L Potassium 4.0 (3.5-5.1) meq/L Chloride 103 (98-107) meq/L Carbon Dioxide 28.6 (21.0-32.0) meq/L Anion Gap 9 (5-15) meq/L BUN 6 L (7-18) mg/dL Creatinine 0.87 (0.50-1.00) mg/dL Estimated GFR 67 L (>89) mL/min Random Glucose 88 (74-106) mg/dL Calcium 8.4 L (8.5-10.1) mg/dL Total Bilirubin 0.4 (0.2-1.0) mg/dL AST 14 L (15-37) U/L ALT 12 (10-53) U/L Alkaline Phosphatase 67 (45-117) U/L Total Creatine Kinase 50 (26-192) U/L Troponin I Less than 0.02 L (0.02-0.05) ng/mL Total Protein 7.2 (6.4-8.2) g/dL Albumin 3.5 (3.4-5.0) g/dL Imaging Data Radiologist's impression: Chest X-Ray 02/19/18 09:22 CONCLUSION: Negative chest for acute disease. Discharge Plan Discharge Disposition Patient Disposition: 30 Still Patient Discharge Details Diagnosis: Atypical chest pain, Bradycardia, Ejection fraction < 50% Physicians Team ED Provider: Michele Ellis Primary Care Provider: Aleta Delgado Attending Provider: Elliot Castro Other Providers: Sanjeev Coley Discharge Interventions Interventions: Vital Signs Last Done: 02/19/18 10:47 Status ED Status: Admitted Observation Patient
[2018-02-19 12:37] LABS: Creatine Kinase 48 U/L (26-192)
[2018-02-19] MEDS ORDERED: Menthol 5.8 MG Lozenge BUCCAL PRN (14:26)
[2018-02-19] MEDS ORDERED: guaiFENesin/Codeine Syrup 200 MG/20 MG 10 ML UDC PO PRN (14:26)
--- NOTE | 2018-02-19 14:29 | P.HP ---
History of Present Illness Primary Care Physician: Aleta Delgado Chief Complaint: Cough, congestion, laryngitis History of Present Illness: 57-year-old female with rather extensive medical history, pertinent to this admission would include chronic obstructive pulmonary disease, hypertension, hyperlipidemia, nonischemic cardiomyopathy. Patient presented to the ER initially for evaluation of laryngitis, cough with green phlegm production. Patient states that her symptoms started 2 weeks ago when she developed a dry cough that she believes that she picked up from her ex-. They progressed got worse where she started developing green phlegm 2 days ago as well as laryngitis. Patient did not improve so she came to the emergency department for evaluation. Patient denies any fever, chills, nausea, vomiting, diarrhea, constipation. Patient does have a rather extensive cardiac history with recent admission with rather extensive workup with myocardial perfusion study on 12/15/17 which was unremarkable. Patient did undergo CT angiography which did indicate short segment narrowing within the proximal LAD suggesting 70 % stenosis. Patient did undergo cardiac catheterization that showed mild to moderate proximal LAD disease resulting in 50% stenosis in the absence of any hemodynamically significant disease. It also indicated severe nonischemic cardiomyopathy with ejection fraction approximately 20%. The patient indicates that she has rather chronic chest discomfort. She describes as chest pain on the left side of her chest and she develops a fullness in the left side of her neck pain going down into her left arm. She states that she is not followed up with the mortgage advisor because they told her that there is nothing else that they can do. Patient is being followed by her global logistics manager in which has started her on isosorbide 10 mg 3 times daily which helps reduce her "attacks". She indicates that the global logistics manager start her on that because she was taking too much Nitrostat. Patient currently resting in bed comfortably. She states that she develops these "attacks "rather periodically. It can happen during exercise and/or rest. Patient had workup done emergency department and rather unremarkable workup except for T wave inversions in lateral leads as compared to previous EKGs. - Diagnosis (1) Viral pneumonitis (2) Angina pectoris (3) Acute electrocardiogram changes Review of Systems All other systems reviewed negative except as stated in HPI Ears, Nose, Mouth, and Throat: Reports other (Laryngitis) Cardiovascular: Reports chest pain Respiratory: Reports change in phlegm color, Reports chest congestion, Reports cough PMFSH - History History Provided By: Patient - Medical History Medical History: Medical History (Last Reviewed 02/19/18 @ 14:09 by DAVID Malloy) ADHD Anemia Anxiety Asthma Bipolar 1 disorder Breast cancer COPD (chronic obstructive pulmonary disease) Carpal tunnel syndrome Cervical cancer Chronic fatigue syndrome Depression alcohol syndrome Fibromyalgia GERD (gastroesophageal reflux disease) Hepatitis C High cholesterol Hypertension Hypothyroid IBS (irritable bowel syndrome) Migraine Multiple sclerosis Neuropathic pain Osteoarthritis Radiculopathy Seizure Traumatic brain injury - Surgical History Surgical History: Surgical History (Last Updated 02/19/18 @ 14:11 by DAVID Malloy) History of breast augmentation History of cardiac catheterization History of myringotomy History of nasal septoplasty History of tonsillectomy H/O left mastectomy H/O: hysterectomy - Family History Family History: Family History (Last Updated 02/19/18 @ 14:12 by DAVID Malloy) Other No pertinent family history - Tobacco History Second Hand Smoke Exposure: No Smoking Status: Former smoker - Alcohol History How Often Do You Have a Drink Containing Alcohol: Monthly or less - Substance Use History Substance History: No History of Abuse - Travel History Recent Travel in the [place] Within the Last 8 Weeks: No Recent Travel Out of the Country Within the Last 8 Weeks: No - Immunization History Tetanus Immunization: Unsure Hx Influenza Vaccine This Season: No Medications and Allergies Active Medications: Active Medications Al Hydroxide/Mg Hydroxide (Milk Of Breanne Eisenberg) 30 ml PO Q12H PRN PRN Reason: Mild Constipation Aspirin (Aspirin) 325 mg PO DAILY JULIANA Heparin Sodium (Porcine) (Heparin Inj) 5,000 units SQ Q12HR JULIANA Nitroglycerin (Nitrostat Sl) 0.4 mg SL Q5M PRN PRN Reason: CHEST PAIN Ondansetron HCl (Zofran Inj) 4 mg IV.PUSH Q6H PRN PRN Reason: NAUSEA OR VOMITING Allergies Allergy/AdvReac Type Severity Reaction Status Date / Time diatrizoate meglumine Allergy Severe SKIN Verified 02/19/18 08:59 REACTION gadobenic acid Allergy Severe SKIN Verified 02/19/18 08:59 REACTION gadodiamide Allergy Severe SKIN Verified 02/19/18 08:59 REACTION gadoteridol Allergy Severe SKIN Verified 02/19/18 08:59 REACTION iodixanol Allergy Severe SKIN Verified 02/19/18 08:59 REACTION iohexol Allergy Severe SKIN Verified 02/19/18 08:59 REACTION povidone-iodine Allergy Severe SKIN Verified 02/19/18 08:59 PROBLEMS Sulfa (Sulfonamide Allergy Severe Hives Verified 02/19/18 08:59 Antibiotics) shellfish derived AdvReac Severe NAUSEA AND Verified 02/19/18 08:59 VOMITING Home Medications Medication Instructions Recorded Confirmed Type cranberry 405 mg PO DAILY 12/15/17 02/19/18 History albuterol sulfate [Ventolin HFA] 2 puff INHALATION Q6-8H 12/22/17 02/19/18 History cyanocobalamin (vitamin B-12) 1,000 mcg IM Q2W 12/22/17 02/19/18 History [Vitamin B-12] carvedilol 6.25 mg PO BID 01/04/18 02/19/18 History cetirizine 10 mg PO DAILY 01/04/18 02/19/18 History clonazepam 1 mg PO BID 01/04/18 02/19/18 History colesevelam [WelChol] 0.5 dose PO DAILY 01/04/18 02/19/18 History fenofibrate nanocrystallized 145 mg PO DAILY 01/04/18 02/19/18 History ipratropium-albuterol 3 ml INHALATION Q8H 01/04/18 02/19/18 History isosorbide mononitrate 10 mg PO TID 01/04/18 02/19/18 History levothyroxine [Synthroid] 125 mcg PO DAILY 01/04/18 02/19/18 History meclizine 25 mg PO DAILY PRN 01/04/18 02/19/18 History methenamine hippurate 1 g PO DAILY 01/04/18 02/19/18 History omeprazole 40 mg PO DAILY 01/04/18 02/19/18 History oxycodone-acetaminophen 1 tab PO Q6H PRN 01/04/18 02/19/18 History sodium chloride [Nasal 1 spray INTRANASAL Q4H PRN MDD 90 01/04/18 02/19/18 History Moisturizing] dexlansoprazole [Dexilant] 60 mg PO DAILY 02/19/18 02/19/18 History fluticasone furoate [Arnuity 1 inh INHALATION DAILY 02/19/18 02/19/18 History Ellipta] nitroglycerin 0.4 mg SUBLINGUAL Q5-15M PRN 02/19/18 02/19/18 History Exam Vital signs: Vital Signs 02/19/18 08:52 02/19/18 09:38 02/19/18 09:39 Temperature 98.6 F Pulse Rate 83 68 Respiratory Rate 20 18 Blood Pressure 117/84 125/82 Pulse Oximetry 97 98 98 02/19/18 10:47 02/19/18 11:52 02/19/18 12:43 Temperature Pulse Rate 65 74 78 Respiratory Rate 18 33 H 25 H Blood Pressure 148/95 H 133/85 Pulse Oximetry 100 Intake & Output 02/18/18 02/19/18 02/19/18 18:59 06:59 18:59 Weight 45.1 kg Other: Date of Last Bowel Movement 02/18/18 Narrative: GENERAL: Well-developed, well-nourished, in no acute distress. alert and orientated HEENT: Head is normocephalic without any lesions or masses noted. Facial features are symmetric. Eyes: Pupils equal round reactive to light. Extraocular muscles are intact. Conjunctivae were clear. Oropharyngeal: Pharynx without any erythema edema. Tongue is midline without deviation. Buccal mucosa is moist without any masses or lesions NECK: Supple without any masses. Trachea midline no deviation. No JVD, no bruits are appreciated CARDIAC: Regular rhythm, regular rate. S1/S2 are heard. No murmurs gallops or rubs. LUNGS: Clear to auscultation bilaterally. No wheeze, rhonchi or rales. No use of accessory muscles on inspiration or expiration. ABDOMEN: Soft, nontender. Nondistended. Bowel sounds heard in all 4 quadrants. No organomegaly or masses. Negative rebound, negative guarding EXTREMITIES: No edema, pulses are equal bilaterally. No cyanosis or clubbing NEUROLOGY: Mood and affect appear appropriate. Cranial nerves II through XII grossly intact. Muscle strength 5/5 in upper and lower extremities bilaterally. Deep tendon reflexes are 2+ in upper and lower extremities bilaterally. Results - Labs CBC & Chem 7: 02/19/18 09:30 02/19/18 09:30 Labs: Laboratory Results - last 24 hr 02/19/18 02/19/18 02/19/18 09:30 09:30 12:00 CBC w Diff Auto diff final WBC 6.3 RBC 4.14 Hgb 12.7 Hct 37.5 MCV 90.6 MCH 30.6 MCHC 33.8 RDW 12.5 Plt Count 291 MPV 7.5 Neut % (Auto) 71.0 H Lymph % (Auto) 21.3 Ashley % (Auto) 5.4 Eos % (Auto) 1.6 Baso % (Auto) 0.7 Neut # (Auto) 4.6 Lymph # (Auto) 1.3 Ashley # (Auto) 0.3 Eos # (Auto) 0.1 Baso # (Auto) 0.0 WBC Differential . Differential Comment . Sodium 141 Potassium 4.0 Chloride 103 Carbon Dioxide 28.6 Anion Gap 9 BUN 6 L Creatinine 0.87 Estimated GFR 67 L Random Glucose 88 Calcium 8.4 L Total Bilirubin 0.4 AST 14 L ALT 12 Alkaline Phosphatase 67 Total Creatine Kinase 50 48 Troponin I Less than 0.02 L Less than 0.02 L Total Protein 7.2 Albumin 3.5 - Imaging Impressions Chest X-Ray 02/19/18 09:22 CONCLUSION: Negative chest for acute disease. Caprini VTE Risk Assessment Caprini VTE Risk Assessment: Moderate/High Risk (score >= 2) Caprini Risk Assessment Model: Point Value = 1 Point Value = 2 Point Value = 3 Point Value = 5 Age 41-60 Minor surgery BMI > 25 kg/m2 Swollen legs Varicose veins or History of unexplained or recurrent spontaneous Oral contraceptives or hormone replacement Sepsis (< 1 month) Serious lung disease, including pneumonia (< 1 month) Abnormal pulmonary function Acute myocardial infarction Congestive heart failure (< 1 month) History of inflammatory bowel disease Medical patient at bed rest Age 61-74 Arthroscopic surgery Major open surgery (> 45 min) Laparoscopic surgery (> 45 min) Malignancy Confined to bed (> 72 hours) Immobilizing plaster cast Central venous access Age >= 75 History of VTE Family history of VTE Factor V Leiden Prothrombin [id number] Lupus anticoagulant Anticardiolipin antibodies Elevated serum homocysteine Heparin-induced thrombocytopenia Other congenital or acquired thrombophilia Stroke (< 1 month) Elective arthroplasty Hip, pelvis, or leg fracture Acute spinal cord injury (< 1 month) Prophylaxis Regimen: Total Risk Factor Score Risk Level Prophylaxis Regimen 0-1 Low Early ambulation 2 Moderate Order ONE of the following: *Sequential Compression Device (SCD) *Heparin 5000 units SQ BID 3-4 Higher Order ONE of the following medications: *Heparin 5000 units SQ TID *Enoxaparin/Lovenox 40 mg SQ daily (WT < 150 kg, CrCl > 30 mL/min) *Enoxaparin/Lovenox 30 mg SQ daily (WT < 150 kg, CrCl > 10-29 mL/min) *Enoxaparin/Lovenox 30 mg SQ BID (WT < 150 kg, CrCl > 30 mL/min) AND/OR *Sequential Compression Device (SCD) 5 or more Highest Order ONE of the following medications: *Heparin 5000 units SQ TID (Preferred with Epidurals) *Enoxaparin/Lovenox 40 mg SQ daily (WT < 150 kg, CrCl > 30 mL/min) *Enoxaparin/Lovenox 30 mg SQ daily (WT < 150 kg, CrCl > 10-29 mL/min) *Enoxaparin/Lovenox 30 mg SQ BID (WT < 150 kg, CrCl > 30 mL/min) AND *Sequential Compression Device (SCD) Assessment and Plan - Assessment (1) Viral pneumonitis Code(s): J12.9 - Viral pneumonia, unspecified Status: Acute (2) Angina pectoris Code(s): I20.9 - Angina pectoris, unspecified Status: Acute (3) Acute electrocardiogram changes Code(s): R94.31 - Abnormal electrocardiogram [ECG] [EKG] Status: Acute - Plan EKG changes with T wave inversions in lateral leads -Unfortunately patient does have rather significant nonischemic cardiomyopathy with ejection fraction around 20% -We will continue patient's home medications to include beta-sis, isosorbide , statin, nitroglycerin as needed -Cardiac consultation has been requested -Continue to rule out any acute coronary event with serial cardiac enzymes and serial EKGs Viral pneumonitis -Continue symptomatic treatment -Start Robitussin-AC for cough suppression, expectorant -Throat lozenges for sore throat and laryngitis Hypertension, hyperlipidemia -Home medications have been continued Hypothyroidism -Continue home medications DVT prevention -Subcutaneous heparin
[2018-02-19] MEDS: Heparin - SQ 10,000 UNITS/ML Vial SQ SCH ×2 (15:22→20:36)
--- NOTE | 2018-02-19 16:33 | ECG ---
Date Performed: 02/19/2018 Time Performed: 11:55:11 PTAGE: 57 years EKG: Sinus rhythm MODERATE T-WAVE ABNORMALITY, CONSIDER LATERAL ISCHEMIA ABNORMAL ECG PREVIOUS TRACING : 02/19/2018 09.46 Since the previous tracing, no significant change noted DOCTOR: Jimbo Albarran Interpretating Date/Time 02/20/2018 17:30:59
[2018-02-19 17:55] LABS: Creatine Kinase 39 U/L (26-192)
--- NOTE | 2018-02-19 18:59 | ECG ---
Date Performed: 02/19/2018 Time Performed: 09:46:40 PTAGE: 57 years EKG: SINUS BRADYCARDIA POSSIBLE LEFT ATRIAL ENLARGEMENT MODERATE T-WAVE ABNORMALITY, CONSIDER AN TEROLATERAL ISCHEMIA ABNORMAL ECG PREVIOUS TRACING : 01/04/2018 13.11 Since the previous tracing, no significant change noted DOCTOR: Johanna Jang Interpretating Date/Time 02/19/2018 18:57:57
[2018-02-19] MEDS: clonazePAM 1 MG Tablet PO SCH (20:35)
[2018-02-19] MEDS: Carvedilol 6.25 MG Tablet PO SCH (20:35)
[2018-02-20 01:32] VITALS: O2SAT 97
[2018-02-20] MEDS ORDERED: Levothyroxine 125 MCG Tablet PO SCH (06:00)
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
[2018-02-20] MEDS ORDERED: Fenofibrate 145 MG Tablet PO SCH (09:00)
[2018-02-20] MEDS: Carvedilol 6.25 MG Tablet PO SCH (09:23)
[2018-02-20] MEDS: Heparin - SQ 10,000 UNITS/ML Vial SQ SCH (09:23)
[2018-02-20] MEDS: clonazePAM 1 MG Tablet PO SCH (09:24)
--- NOTE | 2018-02-20 11:45 | P.PNIM ---
Subjective Interval history: Follow up EKG changes and viral pneumonitis. Patient seen and examined, lying in bed comfortably in nad. Appreciate cardiology consult today, likely symptoms are not cardiac related. ECHO has been done today and awaiting results. Patient has follow up outpatient and will be dcd home and will follow results with PCP. Will follow personally as well when available. Patient denies any chest pain. Has been doing well overnight. Denies any headache, shortness of breath, ab pain , n/v/d or dysuria. Cough has improved with Robitussin. Physical Exam Vital signs: Vital Signs 02/19/18 11:52 02/19/18 12:43 02/19/18 15:45 Temperature Pulse Rate 74 78 81 Respiratory Rate 33 H 25 H 16 Blood Pressure 133/85 Pulse Oximetry 98 02/19/18 16:00 02/19/18 19:46 02/19/18 20:00 Temperature 98.4 F Pulse Rate 82 71 84 Respiratory Rate 35 H 16 24 Blood Pressure 113/78 110/68 Pulse Oximetry 96 97 98 02/20/18 00:00 02/20/18 04:00 Temperature 99.1 F 98 F Pulse Rate 60 60 Respiratory Rate 12 18 Blood Pressure 98/59 L 91/63 L Pulse Oximetry 97 Intake & Output 02/19/18 02/20/18 02/20/18 18:59 06:59 18:59 Intake Total 240 / 240 240 / 240 Balance 240 / 240 240 / 240 Weight 45.1 kg 45.8 kg Intake: Oral 240 / 240 240 / 240 Other: # Voids 3 # Urine Diapers 1 Date of Last Bowel Movement 02/18/18 02/18/18 Narrative: GENERAL: Well-developed, well-nourished, in no acute distress. alert and orientated HEENT: Head is normocephalic without any lesions or masses noted. Facial features are symmetric. Eyes: Pupils equal round reactive to light. Extraocular muscles are intact. Conjunctivae were clear. Oropharyngeal: Pharynx without any erythema edema. Tongue is midline without deviation. Buccal mucosa is moist without any masses or lesions NECK: Supple without any masses. Trachea midline no deviation. No JVD, no bruits are appreciated CARDIAC: Regular rhythm, regular rate. S1/S2 are heard. No murmurs gallops or rubs. LUNGS: Clear to auscultation bilaterally. No wheeze, rhonchi or rales. No use of accessory muscles on inspiration or expiration. ABDOMEN: Soft, nontender. Nondistended. Bowel sounds heard in all 4 quadrants. No organomegaly or masses. Negative rebound, negative guarding EXTREMITIES: No edema, pulses are equal bilaterally. No cyanosis or clubbing NEUROLOGY: Mood and affect appear appropriate. Cranial nerves II through XII grossly intact. Muscle strength 5/5 in upper and lower extremities bilaterally. Deep tendon reflexes are 2+ in upper and lower extremities bilaterally. Results - Labs CBC & Chem 7: 02/19/18 09:30 02/19/18 09:30 Laboratory Results - last 24 hr 02/19/18 02/19/18 12:00 17:10 Total Creatine Kinase 48 39 Troponin I Less than 0.02 L Less than 0.02 L Microbiology 02/19/18 09:40 Nasal Wash Influenza Types A,B Antigen - Final Negative for FLU A and B antigen Infection due to influenza A or B cannot be ruled out since the antigen present in the sample may be below the detection limit of the test. Assessment and Plan - Assessment (1) Viral pneumonitis Code(s): J12.9 - Viral pneumonia, unspecified Status: Acute (2) Angina pectoris Code(s): I20.9 - Angina pectoris, unspecified Status: Acute (3) Acute electrocardiogram changes Code(s): R94.31 - Abnormal electrocardiogram [ECG] [EKG] Status: Acute - Plan This is a 57-year-old male with: EKG changes with T wave inversions in lateral leads -Unfortunately patient does have rather significant nonischemic cardiomyopathy with ejection fraction around 20%. -Will continue patient's home medications to include beta-sis, isosorbide, nitroglycerin as needed. -Cardiac consultation has been requested, appreciate input and recommendations. -Acute coronary event ruled out with serial cardiac enzymes and serial EKGs. -Telemetry reviewed from overnight, occasional PVCs noted. -Continue on home Welchol. -ECHO pending. -Will dc home. Patient has follow up and much improved. Viral pneumonitis -Continue symptomatic treatment -Started Robitussin-AC for cough suppression, expectorant. Has been helping. -Throat lozenges for sore throat and laryngitis Hypertension, hyperlipidemia -Home medications have been continued Hypothyroidism -Continue home medications DVT prevention -Subcutaneous heparin DC home. Follow up with PCP. Heart healthy diet. Activity was tolerated. RX per DC plan.
[2018-02-20] MEDS ORDERED: Aspirin 325 MG Tablet PO SCH (12:00)
--- NOTE | 2018-02-20 12:35 | ECHRPT ---
Indication: Heart Failure CONCLUSIONS Normal left ventricular size. Wall thickness is normal. The left ventricular systolic function is moderately reduced with an estimated ejection fraction in the range of 40-45%. There is trace tricuspid valve regurgitation. The estimated pulmonary arterial pressure is 33 mmHg. BP: / HR: Rhythm: MEASUREMENTS (Male / Female) Normal Values Technical Quality:Technically difficult study 2D ECHO LV Diastolic Diameter PLAX 2.9 cm 4.2 - 5.9 / 3.9 - 5.3 cm LV Systolic Diameter PLAX 2.4 cm IVS Diastolic Thickness 0.9 cm 0.6 - 1.0 / 0.6 - 0.9 cm LVPW Diastolic Thickness 0.9 cm 0.6 - 1.0 / 0.6 - 0.9 cm LV Relative Wall Thickness 0.6 RV Internal Dim ED PLAX 1.9 cm LVOT Diameter 1.8 cm Aortic Root Diameter 2.2 cm LA Systolic Diameter LX 2.3 cm 3.0 - 4.0 / 2.7 - 3.8 cm DOPPLER AV Peak Velocity 114.0 cm/s AV Peak Gradient 5.2 mmHg LVOT Peak Velocity 74.5 cm/s LVOT Peak Gradient 2.2 mmHg AV Area Cont Eq pk 1.7 cm Mitral E Point Velocity 71.1 cm/s Mitral A Point Velocity 60.2 cm/s Mitral E to A Ratio 1.2 LV E' Lateral Velocity 8.1 cm/s Mitral E to LV E' Lateral Ratio 8.8 LV E' Septal Velocity 5.6 cm/s Mitral E to LV E' Septal Ratio 12.8 TR Peak Velocity 239.0 cm/s TR Peak Gradient 22.8 mmHg Right Atrial Pressure 10.0 mmHg Pulmonary Artery Systolic Pressu 32.8 mmHg Right Ventricular Systolic Press 32.8 mmHg PV Peak Velocity 80.1 cm/s PV Peak Gradient 2.6 mmHg FINDINGS LEFT VENTRICLE Normal left ventricular size. Wall thickness is normal. The left ventricular systolic function is moderately reduced with an estimated ejection fraction in the range of 40-45%. RIGHT VENTRICLE Normal right ventricular size and systolic function. LEFT ATRIUM The left atrial size is normal. RIGHT ATRIUM The right atrial size is normal. ATRIAL SEPTUM Normal atrial septal thickness without atrial level shunting by limited color doppler interrogation. AORTA The aortic root and proximal ascending aorta are normal in size on limited imaging. MITRAL VALVE Structurally normal mitral valve. No mitral valve stenosis or regurgitation. AORTIC VALVE Trileaflet aortic valve. No aortic valve regurgitation. No aortic valve stenosis. TRICUSPID VALVE There is trace tricuspid valve regurgitation. The estimated pulmonary arterial pressure is 33 mmHg. PULMONARY VALVE No pulmonary valve regurgitation or stenosis. VESSELS The inferior vena cava is normal in size. PERICARDIUM No pericardial effusion. Abraham Schmitt (Electronically Signed) Final Date:20 February 2018 12:34
[2018-02-20 14:03] VITALS: BP 114/76; PULSE 74; RESP 35; TEMP 97.7
--- NOTE | 2018-02-20 17:25 | ECG ---
Date Performed: 02/19/2018 Time Performed: 17:02:58 PTAGE: 57 years EKG: Sinus rhythm WITH SINUS ARRHYTHMIA MODERATE T-WAVE ABNORMALITY, CONSIDER LATERAL ISCHEMIA ABNORMAL ECG PREVIOUS TRACING : 02/19/2018 11.55 Since the previous tracing, no significant change noted DOCTOR: Jimbo Albarran Interpretating Date/Time 02/20/2018 17:22:39
== END 2018-02-20 13:40 | disposition home or self-care (01) ==
LOC: PHEDA 08:50 → PHED 08:50 → PHICU 11:43
PROVIDERS: ADMIT Hospitalist; ATTEND Hospitalist
DX: I42.9 Cardiomyopathy, unspecified; M79.7 Fibromyalgia; E72.11 Homocystinuria; J44.0 Chronic obstructive pulmonary disease with (acute) lower respiratory infection; F90.9 Attention-deficit hyperactivity disorder, unspecified type; E03.9 Hypothyroidism, unspecified; G35 Multiple sclerosis; I25.119 Atherosclerotic heart disease of native coronary artery with unspecified angina pectoris; R06.02 Shortness of breath; Z87.891 Personal history of nicotine dependence; R53.82 Chronic fatigue, unspecified; M54.2 Cervicalgia; R00.1 Bradycardia, unspecified; F31.9 Bipolar disorder, unspecified; G89.21 Chronic pain due to trauma; E78.5 Hyperlipidemia, unspecified; I10 Essential (primary) hypertension; K21.9 Gastro-esophageal reflux disease without esophagitis; Q86.0 Fetal alcohol syndrome (dysmorphic); B19.20 Unspecified viral hepatitis C without hepatic coma; Z85.41 Personal history of malignant neoplasm of cervix uteri; R48.0 Dyslexia and alexia; Z85.3 Personal history of malignant neoplasm of breast; J12.9 Viral pneumonia, unspecified; E78.00 Pure hypercholesterolemia, unspecified; F41.9 Anxiety disorder, unspecified; D64.9 Anemia, unspecified; Z79.899 Other long term (current) drug therapy